=== PATIENT | male | born 1985 | race African-American/Black ===

== ENCOUNTER 2018-05-11 11:21 | Emergency (ER) | payer SELFPAY ==
[2018-05-11] MEDS ORDERED: Acetaminophen 500 MG TAB ONE (11:50)
[2018-05-11] MEDS ORDERED: Triple Antibiotic Oint 1 GM Packet ONE (11:50)
== END 2018-05-11 11:52 | disposition home or self-care (01) ==
LOC: BURERS 11:21
DX: H69.82 Other specified disorders of Eustachian tube, left ear (principal)
CPT/HCPCS: 99282